=== PATIENT | female | born 1980 | race Caucasian/White ===

== ENCOUNTER 2022-12-06 21:18 | Outpatient (CLI) | payer BC, SELFPAY | END 2022-12-06 21:19 | disposition home or self-care (01) | LOC: AMB 12-07 02:03 | PROVIDERS: Visit Provider Family Medicine | DX: R07.89 Other chest pain (principal); R42 Dizziness and giddiness; R53.1 Weakness | CPT/HCPCS: A0425; A0427 ==

== ENCOUNTER 2022-12-06 21:39 | Observation (INO) | payer BC, SELFPAY ==
[2022-12-06] VITALS (12 sets, daily range): BP systolic 99–130; BP diastolic 55–97; PULSE 98–121; RESP 20; TEMP 36.6; O2SAT 98–100
--- NOTE | 2022-12-06 21:43 | CRLHL7_ITS ---
For Patients: As a result of the Century Cures Act, medical imaging exams and procedure reports are released immediately into your electronic medical record. You may view this report before your referring provider. If you have questions, please contact your health care provider. INDICATION: Acute stroke, left-sided weakness. TECHNIQUE: CTA neck with contrast bolus tracking, 3D angiographic rendering using maximum intensity projection (MIP). FINDINGS: There is no significant carotid artery stenosis or dissection. There is no significant vertebral artery stenosis or dissection. The soft tissues of the neck are within normal limits. The cervical spine is in normal alignment. IMPRESSION: Unremarkable neck CTA. Please note that all CT scans at this facility use dose modulation, iterative reconstruction, and/or weight-based dosing when appropriate to reduce radiation dose to as low as reasonably achievable. Dictated by Lalo Winn MD @ 12/07/2022 8:38:59 AM (Electronically Signed)
--- NOTE | 2022-12-06 21:43 | CRLHL7_ITS ---
For Patients: As a result of the Century Cures Act, medical imaging exams and procedure reports are released immediately into your electronic medical record. You may view this report before your referring provider. If you have questions, please contact your health care provider. INDICATION: Left-sided weakness. TECHNIQUE: Noncontrast CT images acquired through the brain. COMPARISON: None. FINDINGS: The ventricles and sulci are within normal limits for patient age. No mass effect or midline shift. The reis-white differentiation is maintained. No acute intracranial hemorrhage or pathologic extra-axial fluid collection. The globes are symmetric. The calvarium is intact. The visualized paranasal sinuses and mastoid air cells are clear. IMPRESSION: No acute intracranial hemorrhage or mass effect. Please note that all CT scans at this facility use dose modulation, iterative reconstruction, and/or weight-based dosing when appropriate to reduce radiation dose to as low as reasonably achievable. Dictated by Jeison Xiao MD @ 12/06/2022 10:06:18 PM (Electronically Signed)
--- NOTE | 2022-12-06 21:43 | CRLHL7_ITS ---
For Patients: As a result of the Century Cures Act, medical imaging exams and procedure reports are released immediately into your electronic medical record. You may view this report before your referring provider. If you have questions, please contact your health care provider. INDICATION: Acute stroke, left-sided weakness. TECHNIQUE: CTA head with contrast bolus tracking, 3D angiographic rendering using maximum intensity projection (MIP). FINDINGS: There is normal opacification of the intracranial vasculature. There is no large vessel occlusion. No aneurysm is identified. IMPRESSION: Unremarkable head CTA. Please note that all CT scans at this facility use dose modulation, iterative reconstruction, and/or weight-based dosing when appropriate to reduce radiation dose to as low as reasonably achievable. Dictated by Lalo Winn MD @ 12/07/2022 8:37:52 AM (Electronically Signed)
--- NOTE | 2022-12-06 21:53 | ED_ITS ---
HPI - General Adult General Time Seen by Provider: 21:54 Date Seen: 12/06/22 Chief complaint: Weakness Stated complaint: Possible Stroke Time Seen by Provider: 12/06/22 21:43 Source: patient Mode of arrival: EMS Limitations: physical limitation History of Present Illness HPI narrative: Patient is a 42 year white female who at 9:10 a.m. developed some left arm and leg weakness, an ambulance was called. She had been sleeping and taking a nap and then woke up and then had some weakness noted. She has felt some shakiness and some tingling in her left arm it seems better at this point like it is improved in terms of strength, but she still feels a little subjectively weak on the left arm and left leg. She has had no history of stroke no hypertension, no AFib, no recent trauma or injury. She her had a vasectomy. She has not had any bleeding issues. She has had no hypertension hyperlipidemia Related Data Home Medications Medication Instructions Recorded Confirmed No Known Home Medications 12/06/22 12/06/22 Allergies Allergy/AdvReac Type Severity Reaction Status Date / Time No Known Drug Allergies Allergy Verified 12/06/22 22:25 Review of Systems Status of ROS: Reports: 6 or more systems reviewed and unremarkable except as noted in History and below [facility] Medical History (Updated 12/06/22 @ 23:58 by Elmer Del Castillo MD) 3 Social History Smoking Status: Never smoker Do you use any of these nicotine containing products: None How often do you have a drink containing alcohol: 2-3 times a week How many standard drinks containing alcohol do you have on a typical day: 1 or 2 How often do you have six or more drinks on one occasion: Less than monthly AUDIT-C Alcohol total score: 4 Non-prescribed substance use: denies use service: No Exam Narrative: Exam Narrative: Objective: The patient is alert orient x3 no facial asymmetry tongue protrudes midline normal facial creases noted neck is supple chest is clear heart rhythm regular without murmur abdomen benign extremities are no edema neurologic nonfocal patient has no pronator drift 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 Patient will get an EKG put on a monitoring analyst, IV fluid, laboratory studies, stroke Neurology consult be obtained. Const: Vital Signs, click to edit/add: Vital Signs - 24 hr 12/06/22 22:01 12/06/22 22:02 12/06/22 22:14 Temperature 97.8 F Pulse Rate 112 H 115 H Pulse Rate [Right Pulse Oximeter] 121 H Respiratory Rate 20 Blood Pressure 120/67 Blood Pressure [Ri ght Upper Arm] 130/97 H Pulse Oximetry 100 99 98 Oxygen Delivery Me thod Room Air 12/06/22 22:03 12/06/22 22:15 12/06/22 22:17 Temperature Pulse Rate 114 H 105 H 107 H Pulse Rate [Right Pulse Oximeter] Respiratory Rate Blood Pressure 111/65 Blood Pressure [Ri ght Upper Arm] Pulse Oximetry 99 100 99 Oxygen Delivery Me thod 12/06/22 22:30 12/06/22 22:32 12/06/22 22:33 Temperature Pulse Rate 104 H 102 H 104 H Pulse Rate [Right Pulse Oximeter] Respiratory Rate Blood Pressure 99/55 L Blood Pressure [Ri ght Upper Arm] Pulse Oximetry 98 98 98 Oxygen Delivery Me thod 12/06/22 22:45 12/06/22 22:46 12/06/22 22:47 Temperature Pulse Rate 104 H 98 103 H Pulse Rate [Right Pulse Oximeter] Respiratory Rate Blood Pressure 112/69 Blood Pressure [Ri ght Upper Arm] Pulse Oximetry 98 99 98 Oxygen Delivery Me thod Course Vital Signs Vital signs: Initial Vital Signs Pulse Rate 112 H 12/06/22 22:01 Pulse Oximetry 100 12/06/22 22:01 Vital Signs Pulse Rate 112 H 12/06/22 22:01 Pulse Oximetry 100 12/06/22 22:01 Temperature 97.8 F 12/06/22 22:14 Pulse Rate 103 H 12/06/22 22:47 Respiratory Rate 20 12/06/22 22:14 Blood Pressure 112/69 12/06/22 22:46 Pulse Oximetry 98 12/06/22 22:47 Oxygen Delivery Method Room Air 12/06/22 22:14 Medical Decision Making MDM Narrative Medical decision making narrative: Discussed with Stroke Neurology, they recommended given that she has got normal strength now in her leg apparently, that the deficit is too small that he use any lytics. Would given her normal CT and CTA of the head neck, stroke neurology recommended admission for Plavix, IV access, telemetry, probably echocardiogram and MRI scan. Notify hospitalist will follow in hospital. Blood sugar was normal Lab Data Labs: Lab Results 12/06/22 12/06/22 12/06/22 Range/Units 21:55 21:58 22:02 WBC 6.80 (4.50-11.00) K/uL RBC 3.97 L (4.00-5.20) m/uL Hgb 11.5 L (12.0-16.0) gm/dL Hct 35.5 (33.0-51.0) % MCV 89 (80-100) fL MCH 29 (26-34) pg MCHC 32 (32-36) gm/dL RDW Coeff of Cecy 12.9 (11.5-15.5) % Plt Count 233 (140-440) K/uL Neut % (Auto) 44.3 (42.0-72.0) % Lymph % (Auto) 42.6 (20-44) % Sequoyah % (Auto) 7.5 (0.0-11.0) % Eos % (Auto) 5.0 (0.0-7.0) % Baso % (Auto) 0.6 (0.0-3.0) % Neut # (Auto) 3.01 (1.7-7.0) K/uL Lymph # (Auto) 2.90 (0.90-2.90) K/uL Sequoyah # (Auto) 0.50 (0.00-0.90) K/UL Eos # (Auto) 0.34 (0.00-0.50) K/uL Baso # (Auto) 0.04 (0.00-0.30) K/uL INR 1.04 (0.91-1.10) APTT 27 (23-33) Seconds Sodium 133 L (135-149) mmol/L Potassium 4.0 (3.6-5.1) mmol/L Chloride 102 (96-114) mmol/L Carbon Dioxide 26 (20-32) mmol/L BUN 14 (5-24) mg/dL Creatinine 0.7 (0.5-1.5) mg/dL Estimated GFR 110 ml/min Glucose 109 (60-115) mg/dL Calcium 9.1 (8.4-10.6) mg/dL Total Bilirubin 0.2 (0.1-1.5) mg/dL Direct Bilirubin 0.1 (0.0-0.5) mg/dL AST 22 (12-35) U/L ALT 15 (4-35) U/L Alkaline Phosphatase 46 (40-150) U/L C-Reactive Protein < 0.5 L (0.5-1.0) mg/dL NT-Pro-B Natriuret Pep 70 pg/mL Total Protein 6.8 (6.0-8.3) g/dL Albumin 4.1 (3.3-5.0) g/dL HCG, Qual Negative (Negative) SARS-CoV-2 (PCR) Negative SARS-CoV-2 (Negative) POC Troponin I 0.00 L (0.01-0.04) ng/ml Discharge Plan Discharge Clinical Impression: Left-sided weakness Patient Disposition: Admitted As Inpatient
[2022-12-06] MEDS: 0.9 % SODIUM CHLORIDE 500 ML 500 ML IV (21:59)
[2022-12-06 22:01] LABS: Basophils Absolute Auto 0.04 K/uL (0.00-0.30); Basophils Percent Auto 0.6 % (0.0-3.0); Eosinophils Absolute Auto 0.34 K/uL (0.00-0.50); Hematocrit 35.5 % (33.0-51.0); Hemoglobin* 11.5 gm/dL (12.0-16.0); Lymphocytes Percent Auto 42.6 % (20-44); Mean Corpuscular HGB Conc 32 gm/dL (32-36); Mean Corpuscular Hemoglobin 29 pg (26-34); Mean Corpuscular Volume 89 fL (80-100); Monocytes Percent Auto 7.5 % (0.0-11.0); Neutrophils Absolute Auto 3.01 K/uL (1.7-7.0); Neutrophils Percent Auto 44.3 % (42.0-72.0); Platelet Count* 233 K/uL (140-440); RDW Coefficient of Variation % 12.9 % (11.5-15.5); Red Blood Count 3.97 m/uL (4.00-5.20)
[2022-12-06 22:12] LABS: Slide Review Reflex No
[2022-12-06 22:14] LABS: Albumin* 4.1 g/dL (3.3-5.0); Chloride* 102 mmol/L (96-114)
[2022-12-06 22:15] LABS: Sodium* 133 mmol/L (135-149)
[2022-12-06 22:17] LABS: Creatinine* 0.7 mg/dL (0.5-1.5); Estimated Glomerular Filt Rate 110 ml/min; INR 1.04 (0.91-1.10); Prothrombin Time 14.2 Seconds
[2022-12-06 22:18] LABS: Alanine Aminotransferase* 15 U/L (4-35); Alkaline Phosphatase* 46 U/L (40-150); Aspartate Amino Transferase* 22 U/L (12-35); Bilirubin Direct* 0.1 mg/dL (0.0-0.5); Bilirubin Total* 0.2 mg/dL (0.1-1.5); Blood Urea Nitrogen* 14 mg/dL (5-24); Calcium* 9.1 mg/dL (8.4-10.6); Carbon Dioxide* 26 mmol/L (20-32); Glucose* 109 mg/dL (60-115); Partial Thromboplastin Time* 27 Seconds (23-33); Total Protein* 6.8 g/dL (6.0-8.3)
[2022-12-06 22:24] LABS: C Reactive Protein* < 0.5 mg/dL (0.5-1.0)
[2022-12-06 22:29] LABS: NT Pro B Type NatriureticPept* 70 pg/mL
[2022-12-06 22:37] LABS: HCG Qualitative Serum* Negative (Negative)
[2022-12-06 22:43] LABS: SARS PCR* Negative SARS-CoV-2 (Negative)
[2022-12-06] MEDS: CLOPIDOGREL 75 MG TABLET PO (22:46)
--- NOTE | 2022-12-06 23:14 | ED.NURSE ---
patient report given to Marily DWYER. Patient going to be going to [facility] 1
--- NOTE | 2022-12-06 23:43 | P.IMHP_ITS ---
Hospitalist- H&P: HPI History of Present Illness Time Seen by Provider: 23:00 Date Seen: 12/06/22 Chief complaint: Transient left-sided numbness and weakness Narrative: Katie Cifuentes is a 42 year old right-handed woman presents via EMS for further assessment of new onset transient left-sided numbness and weakness. Patient has never had any symptoms like this in the past. She was in her usual state of health up until around 9:15 p.m. today. Earlier in the day she had had a normal Wednesday, were shopping without any difficulties. Around 9:15 p.m. she suddenly noticed numbness in her left arm, hand, and leg. She indicates that she was comfortable in her home and had no trauma, injury, illness. In a relatively short period of time she developed concurrent weakness of left upper extremity and left lower extremity, are more so than leg. Her called for 911 support. Paramedics and share for in their home in a matter of a few minutes. Reportedly they were able to ascertain some weakness on the left side and brought the patient to the hospital emergency department promptly for further assessment. By the time she arrived here most of the weakness had seemingly resolved per our emergency department physician's assessment. Patient had no other symptoms in association with this. Specifically denies headache, nausea, vomiting, any other focal motor or sensory neurologic deficits. Denies chest heaviness, pressure, tightness, or pain. Denies syncope or near-syncope. Denies palpitations, chest fluttering, or concerns with her heart. Denies fevers, rigors, or diaphoresis. No new rashes. No new medications. Had been shopping earlier today and felt well. Denies any sense of anxiety or depression recently. Denies emotional, psychological, social stressors. Review of Systems Status of ROS: Reports: 10 or more systems reviewed and unremarkable except as noted in History and below Narrative: Denies blood loss of any sort. Denies myalgias or arthralgias. Denies polyuria, polydipsia, polyphagia. Denies night sweats. Denies weight gain or weight loss. Bowel and bladder function are satisfactory. Physically active, exercising 4-5 days per week. Very occasionally only consumes alcoholic beverages. Denies use of any street or recreational drugs. Does not use any tobacco products. . Lives with and has 2 children, I believe 1 is 18 and the other 1 is 11. 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 [facility] Medical History 3 Family History Uncle Migraine Social History Smoking Status: Never smoker Do you use any of these nicotine containing products: None How often do you have a drink containing alcohol: 2-3 times a week How many standard drinks containing alcohol do you have on a typical day: 1 or 2 How often do you have six or more drinks on one occasion: Less than monthly AUDIT-C Alcohol total score: 4 Non-prescribed substance use: denies use service: No Meds Home Medications and Allergies Home Medications Medication Instructions Recorded Confirmed Type No Known Home Medications 12/06/22 12/06/22 History Allergies Allergy/AdvReac Type Severity Reaction Status Date / Time No Known Drug Allergies Allergy Verified 12/06/22 22:25 Exam Narrative: Exam Narrative: Appears comfortable no acute distress. Alert and oriented to self, place, time and situation. Somewhat anxious, mood and affect are congruent. Minimal facial asymmetry with coronary of right mouth being slightly lower than on the left. Patient, , an 11-year-old son indicate she appears entirely normal. Vision and hearing are grossly normal. Pupils equally round reactive to light and accommodation. Extraocular muscles are intact. No icterus or conjunctival injection. Normal external auditory canals and tympanic membranes. Midline nasal septum. Normal nasal mucosa. Dentition in good repair. Tongue is midline. Normal articulation of words. No difficulty with swallowing. Cranial nerves 3-12 are grossly normal. Neck is supple. Midline trachea. Normal thyroid. No JVD, hepatojugular reflux, or carotid bruits. No adenopathy in the pre or postauricular chains, anterior-posterior cervical chains, supra or infraclavicular fossa, submandibular sub mental fossa, or axilla bilaterally. Lungs entirely clear to auscultation without wheezing, rhonchi, or rales. No CVA tenderness. Heart tones with regular rhythm, normal S1-S2, without murmur, gallop, or rub. PMI is not laterally displaced. Abdomen with active bowel sounds, soft, nontender. No organomegaly or masses. Independent transfer, station, and gait. Upper and lower extremity strength testing is symmetric and equal bilaterally. No weakness. Normal rapid alternating movements of upper and lower extremities. No tremor, asterixis, or ataxia. Range of motion of upper and lower extremities is full. No obvious joint abnormalities. Skin is warm, dry, intact. Const: Vital Signs, click to edit/add: Vital Signs - 24 hr 12/06/22 22:01 12/06/22 22:02 12/06/22 22:14 Temperature 97.8 F Pulse Rate 112 H 115 H Pulse Rate [Right Pulse Oximeter] 121 H Respiratory Rate 20 Blood Pressure 120/67 Blood Pressure [Ri ght Upper Arm] 130/97 H Pulse Oximetry 100 99 98 Oxygen Delivery Me thod Room Air 12/06/22 22:03 12/06/22 22:15 12/06/22 22:17 Temperature Pulse Rate 114 H 105 H 107 H Pulse Rate [Right Pulse Oximeter] Respiratory Rate Blood Pressure 111/65 Blood Pressure [Ri ght Upper Arm] Pulse Oximetry 99 100 99 Oxygen Delivery Me thod 12/06/22 22:30 12/06/22 22:32 12/06/22 22:33 Temperature Pulse Rate 104 H 102 H 104 H Pulse Rate [Right Pulse Oximeter] Respiratory Rate Blood Pressure 99/55 L Blood Pressure [Ri ght Upper Arm] Pulse Oximetry 98 98 98 Oxygen Delivery Me thod 12/06/22 22:45 12/06/22 22:46 12/06/22 22:47 Temperature Pulse Rate 104 H 98 103 H Pulse Rate [Right Pulse Oximeter] Respiratory Rate Blood Pressure 112/69 Blood Pressure [Ri ght Upper Arm] Pulse Oximetry 98 99 98 Oxygen Delivery Me thod Documenting provider has reviewed patient's vital signs: yes Hospitalist - H&P: Result Labs Labs: Short CBC 12/06/22 Range/Units 21:55 WBC 6.80 (4.50-11.00) K/uL Hgb 11.5 L (12.0-16.0) gm/dL Hct 35.5 (33.0-51.0) % Plt Count 233 (140-440) K/uL [facility] 12/06/22 21:55 Sodium 133 L Potassium 4.0 Chloride 102 Carbon Dioxide 26 BUN 14 Creatinine 0.7 Glucose 109 Calcium 9.1 Liver Function 12/06/22 Range/Units 21:55 Total Bilirubin 0.2 (0.1-1.5) mg/dL Direct Bilirubin 0.1 (0.0-0.5) mg/dL AST 22 (12-35) U/L ALT 15 (4-35) U/L Alkaline Phosphatase 46 (40-150) U/L Albumin 4.1 (3.3-5.0) g/dL ECG Attestation: I personally reviewed and interpreted this ECG as follows: ECG interpretation date: 12/06/22 ECG interpretation time: 23:30 Prior ECG tracings: not available for review Interpretation: Sinus tachycardia without ischemic changes. Heart rate 112. Imaging CT scan - head: Attestation: I have reviewed the pertinent imaging results. Radiologist's impression: CT of the head without contrast demonstrates no abnormalities. CT scan of head and neck angiogram demonstrates no large vessel abnormalities. Assessment and Plan Assessment and plan (1) Left-sided weakness: Problem comment: Left-sided numbness and weakness, upper extremity more so than lower extremity. Transient. Differential diagnosis includes TIA, stroke, migraine equivalent, seizure, neoplasm, vascular such as aneurysm or vasculitis, inflammatory such as multiple sclerosis, infectious such as syphilis, and psychogenic. Status: Acute Assessment and Plan: 1. Emergency department physician discussed with neurologist at [facility]. Neurologist recommended admission to observation, telemetry, echo, MRI. 2. Patient and are agreeable to the same. 3. Will check VDRL, erythrocyte sedimentation rate also. 4. Neuro checks while in the hospital. 5. Physical therapy and occupational therapy consultations. 6. Will likely warrant outpatient neurology consultation if continues to do well, consider transfer sooner if condition worsens.
[2022-12-07] VITALS (8 sets, daily range): BP systolic 93–107; BP diastolic 60–68; PULSE 64–98; RESP 16; TEMP 37.1–37.3; O2SAT 98–100; BMI 21.4
--- NOTE | 2022-12-07 07:39 | PC.NURSE ---
Pt is pleasant and cooperative. VSS she is on RA. Numbness and tingling gone around 0300. Up I in room. No other symptoms noted. Voiding without problems . Tolerating liquid.
[2022-12-07] MEDS: CLOPIDOGREL 75 MG TABLET PO (09:05)
[2022-12-07] MEDS: SODIUM CHLORIDE 0.9 % (FLUSH) 10 ML SYRINGE 5 ML IVF (09:06)
--- NOTE | 2022-12-07 11:00 | CRLHL7_ITS ---
For Patients: As a result of the Century Cures Act, medical imaging exams and procedure reports are released immediately into your electronic medical record. You may view this report before your referring provider. If you have questions, please contact your health care provider. INDICATION: Left-sided weakness. TECHNIQUE: Multiplanar multisequence noncontrast MR images acquired through the brain. COMPARISON: CT brain and CTA head/neck 12/06/2022. FINDINGS: The ventricles and sulci are within normal limits for patient age. No mass effect or midline shift. Two punctate FLAIR hyperintensities in the frontal white matter (series 4, image 25), nonspecific. No diffusion restriction to suggest acute infarction. No intracranial hemorrhage or pathologic extra-axial fluid collection. The major arterial flow voids of the skullbase are preserved. The globes are symmetric. The paranasal sinuses are well aerated. The mastoid air cells are clear. IMPRESSION: 1. No acute infarction, mass effect, or intracranial hemorrhage. 2. Two punctate T2 FLAIR hyperintensities in the supratentorial white matter are nonspecific, though typical for sequelae of minimal chronic microvascular ischemic changes or migraine headaches. Dictated by Jeison Xiao MD @ 12/07/2022 12:35:15 PM (Electronically Signed)
--- NOTE | 2022-12-07 13:21 | CRLHL7_ITS ---
For Patients: As a result of the Century Cures Act, medical imaging exams and procedure reports are released immediately into your electronic medical record. You may view this report before your referring provider. If you have questions, please contact your health care provider. INDICATION: Left-sided weakness TECHNIQUE: A compression venous ultrasound exam was performed of both lower extremities using reis scale imaging, color Doppler and spectral Doppler analysis. FINDINGS: Sonographic imaging of the lower extremities demonstrates normal compressibility and color Doppler venous blood flow within the common femoral, deep femoral, and proximal greater saphenous veins. Within the thighs the femoral veins are patent and compressible. At a lower level the popliteal and posterior tibial veins also show normal compressibility and color Doppler venous blood flow. IMPRESSION: No evidence of deep vein thrombosis within either the left or right lower extremity. Dictated by Caroline Holguin MD @ 12/07/2022 2:40:09 PM (Electronically Signed)
--- NOTE | 2022-12-07 16:52 | P.IMHP_ITS ---
Hospitalist- H&P: HPI History of Present Illness Date Seen: 12/07/22 Chief complaint: Transient left-sided numbness and weakness Narrative: HOSPITALIST DISCHARGE SUMMARY ATTENDING PHYSICIAN: Jeanne Lyon MD FINAL DIAGNOSIS: HOSPITAL FOLLOWUP ISSUES: REFERRALS WHILE ADMITTED: None REFERRALS AFTER DISCHARGE: None BRIEF HOSPITAL COURSE: SUBSTANTIVE NOTATIONS ON IMAGING, LAB, MICROBIOLOGY/PATHOLOGY STUDIES: Final Impressions: 1. Normal LV size, normal wall thickness, normal global systolic function with an estimated EF of 60 - 65%. 2. Right ventricular cavity size is normal, global systolic RV function is normal. 3. Positive bubble study following Valsalva. Agitated saline injection showed right to left shunting of microbubbles across the atrial septum only following Valsalva. No left to right shunting was detected by limited color flow Doppler interrogation of the interatrial septum. DISCHARGE MEDICATIONS: See Reconciled list - SIGNIFICANT CHANGES: REVIEW OF SYSTEMS No new chest pain or dyspnea Pain controlled No voiding difficulties Tolerating diet challenge PHYSICAL EXAM: CONSTITUTIONAL: VITAL SIGNS: see record. HEENT: Normocephalic, atraumatic. PERRL, EOMI, conjunctivae pink, no scleral icterus. Ears and nose externally normal. Pharynx normal. NECK: No JVD. No carotid bruit, no thyromegaly, no adenopathy. CHEST: Clear to auscultation bilaterally. HEART: S1 and S2 normal. Edema ABDOMEN: Soft, nontender. Normal bowel sounds. MUSCULOSKELETAL: No gross joint deformity or swelling. NEURO: Cranial nerves intact. Grossly intact. No asymmetric findings. SKIN: No rashes, petechiae, concerning changes PSYCHIATRIC: Mood euthymic. DISPOSITION: Time spent on discharge 37 minutes. [facility] Medical History 3 Family History Uncle Migraine Social History Smoking Status: Never smoker Do you use any of these nicotine containing products: None How often do you have a drink containing alcohol: 2-3 times a week How many standard drinks containing alcohol do you have on a typical day: 1 or 2 How often do you have six or more drinks on one occasion: Less than monthly AUDIT-C Alcohol total score: 4 Non-prescribed substance use: denies use Caffeine: Yes (1 cup of coffee) service: No Meds Home Medications and Allergies Allergies Allergy/AdvReac Type Severity Reaction Status Date / Time No Known Drug Allergies Allergy Verified 12/06/22 22:25 Exam Const: Vital Signs, click to edit/add: Vital Signs - 24 hr 12/06/22 22:01 12/06/22 22:02 12/06/22 22:14 Temperature 97.8 F Pulse Rate 112 H 115 H Pulse Rate [Pulse Oximeter] Pulse Rate [Right Pulse Oximeter] 121 H Respiratory Rate 20 Blood Pressure 120/67 Blood Pressure [Le ft Arm] Blood Pressure [Ri ght Upper Arm] 130/97 H Pulse Oximetry 100 99 98 Oxygen Delivery Me thod Room Air 12/06/22 22:03 12/06/22 22:15 12/06/22 22:17 Temperature Pulse Rate 114 H 105 H 107 H Pulse Rate [Pulse Oximeter] Pulse Rate [Right Pulse Oximeter] Respiratory Rate Blood Pressure 111/65 Blood Pressure [Le ft Arm] Blood Pressure [Ri ght Upper Arm] Pulse Oximetry 99 100 99 Oxygen Delivery Me thod 12/06/22 22:30 12/06/22 22:32 12/06/22 22:33 Temperature Pulse Rate 104 H 102 H 104 H Pulse Rate [Pulse Oximeter] Pulse Rate [Right Pulse Oximeter] Respiratory Rate Blood Pressure 99/55 L Blood Pressure [Le ft Arm] Blood Pressure [Ri ght Upper Arm] Pulse Oximetry 98 98 98 Oxygen Delivery Me thod 12/06/22 22:45 12/06/22 22:46 12/06/22 22:47 Temperature Pulse Rate 104 H 98 103 H Pulse Rate [Pulse Oximeter] Pulse Rate [Right Pulse Oximeter] Respiratory Rate Blood Pressure 112/69 Blood Pressure [Le ft Arm] Blood Pressure [Ri ght Upper Arm] Pulse Oximetry 98 99 98 Oxygen Delivery Me thod 12/07/22 00:28 12/07/22 01:00 12/07/22 01:01 Temperature Pulse Rate 80 80 Pulse Rate [Pulse Oximeter] 77 Pulse Rate [Right Pulse Oximeter] Respiratory Rate 16 Blood Pressure Blood Pressure [Le ft Arm] 107/68 Blood Pressure [Ri ght Upper Arm] Pulse Oximetry 98 Oxygen Delivery Me thod Room Air 12/07/22 04:32 12/07/22 07:00 12/07/22 11:00 Temperature 99.2 F Pulse Rate Pulse Rate [Pulse Oximeter] 64 76 98 Pulse Rate [Right Pulse Oximeter] Respiratory Rate 16 16 16 Blood Pressure Blood Pressure [Le ft Arm] 93/60 97/66 103/68 Blood Pressure [Ri ght Upper Arm] Pulse Oximetry 98 99 99 Oxygen Delivery Il thod Room Air Room Air Room Air 12/07/22 08:00 12/07/22 15:00 Temperature 98.7 F Pulse Rate 69 Pulse Rate [Pulse Oximeter] 73 Pulse Rate [Right Pulse Oximeter] Respiratory Rate 16 Blood Pressure Blood Pressure [Le ft Arm] 107/68 Blood Pressure [Ri ght Upper Arm] Pulse Oximetry 100 Oxygen Delivery Il thod Room Air Hospitalist - H&P: Result Labs Labs: Short CBC 12/06/22 Range/Units 21:55 WBC 6.80 (4.50-11.00) K/uL Hgb 11.5 L (12.0-16.0) gm/dL Hct 35.5 (33.0-51.0) % Plt Count 233 (140-440) K/uL BMP 12/06/22 21:55 Sodium 133 L Potassium 4.0 Chloride 102 Carbon Dioxide 26 BUN 14 Creatinine 0.7 Glucose 109 Calcium 9.1 Liver Function 12/06/22 Range/Units 21:55 Total Bilirubin 0.2 (0.1-1.5) mg/dL Direct Bilirubin 0.1 (0.0-0.5) mg/dL AST 22 (12-35) U/L ALT 15 (4-35) U/L Alkaline Phosphatase 46 (40-150) U/L Albumin 4.1 (3.3-5.0) g/dL
--- NOTE | 2022-12-07 18:14 | PC.NURSE ---
D/c: Pt A&O. Ind and tolerating activity. Denies chest pain and SOB. Complains of tingling in left arm in the morning but since resolved. IV removed with tip intact. D/c instructions given to pt verbally and written copy sent home. All questions answered. D/c at 1720 home with .
--- NOTE | 2022-12-08 16:18 | PM.DS1 ---
DS: Providers Provider Date Seen: 12/07/22 Date of admission: 12/06/22 23:58 Primary care physician: Not a Local Provider Admitting Clinician: Elmer Del Castillo MD Consults: 12/06/22 23:58 Consult to Occupational Therapy [CONS] Routine Comment: Reason(s) for OT Consult:: Evaluate and Treat Any Restrictions?:: No Restrictions Comment: transient L sided numbness and weakness Consult to Physical Therapy [CONS] Routine Comment: Reason(s) for PT Consult:: Evaluate and Treat Any Restrictions?:: No Restrictions Comment: transient L sided numbness and weakness Attending Physician on discharge: [facility]charge: 12/07/22 DS: Diagnosis Discharge Diagnosis (1) Cryptogenic stroke: Status: Acute Problem details: Negative Imaging findings. Affected her left side. Likely from PFO. Negative DVT ultrasound. Released on p.o. Plavix. (2) PFO (patent foramen ovale): Status: Acute Problem details: [facility] to follow. DS: Summary Hospital Course Hospital Course: HOSPITALIST DISCHARGE SUMMARY ATTENDING PHYSICIAN: JEANNE GUTIERREZ MD FINAL DIAGNOSIS: Cryptogenic ischemic CVA Patent foramen ovale HOSPITAL FOLLOWUP ISSUES: Cardiology REFERRALS WHILE ADMITTED: Phone consultation with Cardiology REFERRALS AFTER DISCHARGE: Cardiology BRIEF HOSPITAL COURSE: Chelly is a 42-year-old who presented with nonspecific but concerning symptoms of a CVA. Previously healthy she felt the onset of left-sided weakness her arm and leg and felt syncopal. She was brought by EMS to our hospital. Her initial CT angiogram was reassuring but given her symptoms we discussed her case with Neurology who recommended observation and initiation of Plavix. The following day all of her symptoms had resolved. Neuro exam was normal. Her brain MRI showed some punctate lesions more consistent with migraine history verses CVA. However, her echocardiogram was positive for a shunt and positive bubble study indicating a PFO. Spoke with cardiology at [facility], we will keep her on the Plavix, she will discharge with strict precautions to return with any new neurologic symptoms and she will see them in outpatient follow-up for consultation regarding PFO. SUBSTANTIVE NOTATIONS ON IMAGING, LAB, MICROBIOLOGY/PATHOLOGY STUDIES: Final Impressions: 1. Normal LV size, normal wall thickness, normal global systolic function with an estimated EF of 60 - 65%. 2. Right ventricular cavity size is normal, global systolic RV function is normal. 3. Positive bubble study following Valsalva. DISCHARGE MEDICATIONS: SEE RECONCILED LIST - SIGNIFICANT CHANGES: Plavix 75 mg p.o. q.day REVIEW OF SYSTEMS NO NEW CHEST PAIN OR DYSPNEA PAIN CONTROLLED NO VOIDING DIFFICULTIES TOLERATING DIET CHALLENGE PHYSICAL EXAM: CONSTITUTIONAL: VITAL SIGNS: SEE RECORD. HEENT: NORMOCEPHALIC, ATRAUMATIC. PERRL, EOMI, CONJUNCTIVAE PINK, NO SCLERAL ICTERUS. EARS AND NOSE EXTERNALLY NORMAL. PHARYNX NORMAL. NECK: NO JVD. NO CAROTID BRUIT, NO THYROMEGALY, NO ADENOPATHY. CHEST: CLEAR TO AUSCULTATION BILATERALLY. HEART: S1 AND S2 NORMAL. EDEMA ABDOMEN: SOFT, NONTENDER. NORMAL BOWEL SOUNDS. MUSCULOSKELETAL: NO GROSS JOINT DEFORMITY OR SWELLING. NEURO: CRANIAL NERVES INTACT. GROSSLY INTACT. NO ASYMMETRIC FINDINGS. SKIN: NO RASHES, PETECHIAE, CONCERNING CHANGES PSYCHIATRIC: MOOD EUTHYMIC. DISPOSITION: Home with family TIME SPENT ON DISCHARGE 37 MINUTES. Status at Discharge Functional status at discharge: independent ambulation Overall status at discharge: patient is not back to baseline Time Spent with Patient Time attestation: Total time spent providing and/or coordinating discharge services: Time spent: Greater than 30 minutes Discharge Plan Discharge Disposition: Home w/ Parent or Adult Date of Admission: 12/06/22 23:58 Attending Provider on Discharge: Jeanne Gutierrez Primary Care Provider: Provider,Not a Local Anticipated Discharge Date/Time: 12/07/22 16:14 Discharge Medications: New clopidogrel 75 mg Tablet 75 mg PO DAILY Qty: 30 0RF Discharge Orders: Discharge Order (Routine); Ordered 12/07/22 Ordered By: Jeanne Gutierrez Patient Education: Clopidogrel (By mouth) (Plavix), Patent Foramen Ovale (DC) Additional Instructions: Take plavix everyday. Any new symptoms please present to the ED immediately. Activity Level: No Restrictions Discharge Diet: Regular Follow Up Appointments: [facility] [Provider Group] (The group should call you. Please call our floor at [phone] if you need assistance. ) Forms: [employer] Info Instructions
--- NOTE | 2022-12-11 15:22 | PC.NURSE ---
Received call from patient today, stated still having tingling in left arm which was present during discharge as well. Reviewed Dr lopez note, Informed patient to see ED if symptoms persist.
== END 2022-12-07 15:20 | disposition home or self-care (01) ==
LOC: ED 22:29 → MEDSURG 23:44
PROVIDERS: Admitting Provider Internal Medicine; Emergency Provider Family Medicine; Visit Provider Internal Medicine
DX: I63.9 Cerebral infarction, unspecified (principal); G81.94 Hemiplegia, unspecified affecting left nondominant side; Q21.12 Patent foramen ovale
CPT/HCPCS: 36415; 70450; 70496; 70498; 70551; 80048; 80076; 83880; 84484; 84703; 85025; 85610; 85730; 86140; 87635; 93005; 93306; 93970; 96360; 96374; 97112; 97161; 97165; 99285; G0378; A9270; J7120; Q9967

== ENCOUNTER 2023-06-14 12:56 | Emergency (ER) | payer BC, SELFPAY ==
[2023-06-14 13:14] VITALS: BP 115/81; PULSE 104; RESP 16; TEMP 37.3; O2SAT 100; BMI 20.5
--- NOTE | 2023-06-14 13:46 | ED_ITS ---
HPI - Chest Pain General Chief Complaint: Chest Pain Stated Complaint: Tightness in chest Time Seen by Provider: 06/14/23 13:21 History of Present Illness HPI narrative: This 42-year-old female comes in reporting some chest discomfort that began last night. She states that it is mild to moderate and is rather constant. She does not have any nausea, vomiting, shortness of breath, diaphoresis, or exercise intolerance. She had a repair of a patent foramen ovale done 3 days ago. This was repaired by a catheter into her femoral vessels. She did not have open heart surgery. She is taking Plavix and now started aspirin. This PFO was identified because she did have a small stroke. She does report some positional lightheadedness symptoms. When upright sometime she feels lightheaded. She is not on any antihypertensive or rate controlling medications. Related Data Home Medications Medication Instructions Recorded Confirmed aspirin 81 mg capsule 81 mg PO DAILY 06/14/23 06/14/23 Previous Rx's Medication Instructions Recorded clopidogrel 75 mg tablet 75 mg PO DAILY #30 tabs 12/07/22 Allergies Allergy/AdvReac Type Severity Reaction Status Date / Time No Known Drug Allergies Allergy Verified 06/14/23 13:13 Review of Systems Status of ROS Reports: 10 or more systems reviewed and unremarkable except as noted in History and below Narrative Constitutional: No fevers, no weight gain or loss. Eyes: No discharge. No vision changes. HENT: No congestion, no sore throat, no ear pain. Cardiovascular: No palpitations. Chest discomfort as described above. Respiratory: No shortness of breath, no wheezes, no cough. Gastrointestinal: No abdominal pain, no vomiting, no diarrhea. Genitourinary: No dysuria, no hematuria. Musculoskeletal: Normal range of motion. Skin: No rashes, no pruritis. Neurological: No dizziness, weakness, sensory change, speech change. Endo/Heme/Allergies: No bruising or bleeding. No polydipsia. Pysch: no suicidality, no anxiety, no insomnia. All other systems reviewed and are negative. [facility] Medical History (Updated 06/14/23 @ 14:24 by Luis Reyez MD) Cryptogenic stroke ?I63.9 - Cerebral infarction, unspecified (ICD-10) PFO (patent foramen ovale) ?Q21.12 - Patent foramen ovale (ICD-10) 3 Family History Uncle Migraine Social History Smoking Status: Never smoker Do you use any of these nicotine containing products: None Second hand tobacco smoke exposure: No How often do you have a drink containing alcohol: 2-3 times a week How many standard drinks containing alcohol do you have on a typical day: 1 or 2 How often do you have six or more drinks on one occasion: Less than monthly AUDIT-C Alcohol total score: 4 Non-prescribed substance use: denies use Caffeine: Yes (1 cup of coffee) service: No Exam Narrative Exam Narrative: Constitutional: Well-developed, well-nourished, no acute distress. HEENT: Normocephalic, atraumatic. Neck: Normal range of motion. Nontender. Supple. Heart: Regular. No murmurs. Normal rate. Intact distal pulses. Lungs: Clear to auscultation. No chest discomfort. No wheezes, rhonchi, or ral es. Abdomen: Normal bowel sounds. Nontender. No rebound tenderness. Genitalia: Deferred. Back: No midline tenderness. Normal range of motion. Extremities: Normal range of motion. No injury. Skin: Intact. No rash. Warm. No erythema or pallor. Neurologic: No altered sensation. No weakness. Alert and oriented. Psychiatric: No suicidality. No anxiety or depression. No insomnia. Nursing notes and vitals signs are reviewed. Const Vital Signs, click to edit/add: Vital Signs - 24 hr 06/14/23 13:14 06/14/23 14:04 Temperature 99.1 F Pulse Rate [Pulse Oximeter] 104 H 83 Pulse Rate [orthostatic sitting Pulse Oximeter] 94 Pulse Rate [orthostatic standing Superficial Temporal] 100 Respiratory Rate 16 Blood Pressure [Right Upper Arm] 115/81 Blood Pressure [orthostatic lying Left Arm] 98/64 Blood Pressure [orthostatic sitting Left Arm] 102/77 Blood Pressure [orthostatic standing Left Arm] 110/89 Pulse Oximetry 100 Oxygen Delivery Method Room Air Course Vital Signs Vital signs: Initial Vital Signs Temperature 99.1 F 06/14/23 13:14 Temperature Source Temporal Artery Scan 06/14/23 13:14 Pulse Rate 104 H 06/14/23 13:14 Pulse Rhythm Regular 06/14/23 13:14 Pulse Strength 3+ Normal 06/14/23 13:14 Respiratory Rate 16 06/14/23 13:14 Blood Pressure 115/81 06/14/23 13:14 Blood Pressure Mean 92 06/14/23 13:14 Blood Pressure Position Sitting 06/14/23 13:14 Pulse Oximetry 100 06/14/23 13:14 Oxygen Delivery Method Room Air 06/14/23 13:14 Vital Signs Temperature 99.1 F 06/14/23 13:14 Pulse Rate 104 H 06/14/23 13:14 Respiratory Rate 16 06/14/23 13:14 Blood Pressure 115/81 06/14/23 13:14 Pulse Oximetry 100 06/14/23 13:14 Oxygen Delivery Method Room Air 06/14/23 13:14 Temperature 99.1 F 06/14/23 13:14 Pulse Rate 83 06/14/23 14:04 Respiratory Rate 16 06/14/23 13:14 Blood Pressure 98/64 06/14/23 14:04 Pulse Oximetry 100 06/14/23 13:14 Oxygen Delivery Method Room Air 06/14/23 13:14 MDM - Chest Pain MDM Narrative Medical decision making narrative: This patient comes in reporting some mild chest discomfort that started last night. She also has had a few brief oppositional episodes of feeling lightheaded. She did have a repair of a patent foramen ovale 3 days ago. Her EKG here shows normal sinus rhythm without any ST or T-wave abnormalities. Orthostatic blood pressures are obtained and returned with normal results. Her blood pressure actually increased a bit when moving from a lying to sitting and then to standing. She did not have any symptoms of lightheaded Corey when do ing so. I did discuss lab and imaging options with the patient. These were declined in a process of shared decision making as she just had a recent procedure with a very thorough workup. Her discomfort may be related to that recent procedure. At the time of discharge the patient appears safe for outpatient management. The treatment plan is reviewed along with written and verbal return precautions. Reasons to return and the importance of close followup were also reviewed. ECG Data Attestation: I personally reviewed and interpreted this ECG as follows: Interpretation: Normal sinus rhythm. Rate is 97 beats per minute. There are no ST or T-wave abnormalities. Discharge Plan Discharge Clinical Impression: Atypical chest pain Patient Disposition: Home, Self-Care Condition: Stable Additional Instructions: Continue current plans. Follow up with MD as scheduled or sooner if needed. Return if worsening. Prescriptions: No Action clopidogrel 75 mg Tablet 75 mg PO DAILY Qty: 30 0RF aspirin 81 mg capsule 81 mg PO DAILY Follow Up/Referrals: Provider,Not a Local [Referring] - Stand Alone Forms: [employer] Info Instructions
[2023-06-14 14:04] VITALS: BP 102/77; BP 110/89; BP 98/64; PULSE 100; PULSE 83; PULSE 94
== END 2023-06-14 14:30 | disposition home or self-care (01) ==
PROVIDERS: Emergency Provider Emergency Medicine Emergency Medical Services; PCP Family Medicine
DX: R07.89 Other chest pain (principal)
CPT/HCPCS: 93005; 99284

== ENCOUNTER 2023-06-24 10:57 | Outpatient (CLI) | payer BC, SELFPAY | END 2023-06-24 10:58 | disposition home or self-care (01) | PROVIDERS: PCP Family Medicine; Visit Provider Family Medicine | DX: I63.9 Cerebral infarction, unspecified (principal) | CPT/HCPCS: 80048; 85025 ==

== ENCOUNTER 2023-07-12 14:57 | Outpatient (CLI) | payer BC, SELFPAY | END 2023-07-12 14:58 | disposition home or self-care (01) | PROVIDERS: PCP Family Medicine; Visit Provider Nurse Practitioner | DX: Q21.12 Patent foramen ovale (principal) | CPT/HCPCS: 93308; 93321; 93325 ==

== ENCOUNTER 2023-07-23 09:36 | Outpatient (CLI) | payer BC, SELFPAY ==
--- NOTE | 2023-07-23 09:45 | CRLHL7_ITS ---
For Patients: As a result of the Cures Act, medical imaging exams and procedure reports are released immediately into your electronic medical record. You may view this report before your referring provider. If you have questions, please contact your health care provider. DIGITAL DIAGNOSTIC BILATERAL MAMMOGRAM USING TOMOSYNTHESIS AND COMPUTER-AIDED DETECTION LEFT BREAST ULTRASOUND CLINICAL HISTORY: LEFT breast pain. COMPARISON: 11/24/2021, 11/10/2021, 11/06/2021. TECHNIQUE: Digital BILATERAL mammogram in four projections. Tomosynthesis and CAD utilized. Real-time ultrasound imaging of LEFT breast with imaging documentation. BREAST COMPOSITION: The breasts are heterogeneously dense, which may obscure small masses. FINDINGS: 3D CC/MLO BILATERAL mammogram images submitted. Stable cyst RIGHT breast. No architectural distortion. No suspicious masses LEFT breast. No adenopathy or suspicious calcifications. Targeted LEFT breast ultrasound performed 2 o`clock 2 cm from the nipple. Circumscribed anechoic cysts are present measuring 8 x 5 x 10 millimeters and 6 x 6 x 7 millimeters. No solid mass. No abnormal vascularity. IMPRESSION: Benign fibrocystic changes LEFT breast 2 o`clock 2 cm from the nipple. No evidence of malignancy. RECOMMENDATIONS: Annual BILATERAL screening mammography. Results and recommendations discussed with the patient. BI-RADS Category 2: Benign A lay language report of this examination will be provided to the patient. Dictated by Erick Villarreal MD @ 07/23/2023 10:30:12 AM osito/Dictated by: Erick Villarreal MD @ 07/23/2023 10:30:00 AM (Electronically Signed)
--- NOTE | 2023-07-23 10:15 | CRLHL7_ITS ---
For Patients: As a result of the Cures Act, medical imaging exams and procedure reports are released immediately into your electronic medical record. You may view this report before your referring provider. If you have questions, please contact your health care provider. PLEASE SEE DIGITAL DIAGNOSTIC BILATERAL MAMMOGRAM PERFORMED SAME DAY CRL:jesse molina/Dictated by: Erick Villarreal MD @ 07/23/2023 10:30:00 AM (Electronically Signed)
== END 2023-07-23 09:37 | disposition home or self-care (01) ==
LOC: MAMMO 09:36
PROVIDERS: PCP Family Medicine; Visit Provider Obstetrics & Gynecology
DX: N64.4 Mastodynia (principal)
CPT/HCPCS: 76642; 77066; G0279

== ENCOUNTER 2024-10-05 10:34 | Outpatient (CLI) | payer BC, SELFPAY ==
--- NOTE | 2024-10-05 10:45 | CRLHL7_ITS ---
For Patients: As a result of the Cures Act, medical imaging exams and procedure reports are released immediately into your electronic medical record. You may view this report before your referring provider. If you have questions, please contact your health care provider. BILATERAL SCREENING MAMMOGRAM WITH COMPUTER-AIDED DETECTION AND TOMOSYNTHESIS TECHNIQUE: CC and MLO views were obtained. These mammographic images have been obtained using full-field digital technique. These mammographic images were interpreted with the benefit of computer-aided detection. Breast Tomosynthesis was used in this interpretation. COMPARISON FILM: 07/23/23, 11/06/21. FINDINGS: The breasts are extremely dense, which lowers the sensitivity of mammography IMPRESSION: There is no radiographic evidence for malignancy. ASSESSMENT: BI-RADS Category 2: Benign RECOMMENDATION: Routine screening mammogram in 1 year. A lay language report of this examination will be provided to the patient. Erick Villarreal M.D. Diagnostic Radiologist [email or web address] Transcribed: 2:54 p.mFei molina/Dictated by: Erick Villarreal MD @ 10/10/2024 12:24:00 PM (Electronically Signed)
== END 2024-10-05 10:35 | disposition home or self-care (01) ==
LOC: MAMMO 10:34
PROVIDERS: PCP Family Medicine; Visit Provider Obstetrics & Gynecology
DX: Z12.31 Encounter for screening mammogram for malignant neoplasm of breast (principal); R92.343 Mammographic extreme density, bilateral breasts
CPT/HCPCS: 77063; 77067

== ENCOUNTER 2024-11-10 13:42 | Outpatient (CLI) | payer BC, SELFPAY ==
[2024-11-12 15:00] LABS: HPV Source Cervical; HPV, High Risk by TMA Not Detected
== END 2024-11-10 13:43 | disposition home or self-care (01) ==
PROVIDERS: PCP Family Medicine; Visit Provider Obstetrics & Gynecology
DX: Z12.4 Encounter for screening for malignant neoplasm of cervix (principal); Z11.51 Encounter for screening for human papillomavirus (HPV)
CPT/HCPCS: 87624; 87625; 88141; 88142

== ENCOUNTER 2024-12-21 10:23 | Outpatient (CLI) | payer BC, SELFPAY ==
--- NOTE | 2024-12-21 11:43 | P.ANES_ITS ---
Anesthesia Charges Start Date/Time Anesthesia Start Date: 12/21/24 Anesthesia Start Time: 11:00 Stop Date/Time Anesthesia Stop Date: 12/21/24 Anesthesia Stop Time: 11:42 Coding CPT Codes CPT Codes: ANES LWR INTST NDSC NOS - 74977 ([id number]) P3 - PATIENT W/SEVERE SYS DISEASE, QK - INDUSTRIAL MAINTENANCE MANAGER 2-4 CNCRNT ANES PROC, QX - RETORT LOAD EXPEDITER SVC W/ MD MED DIRECTION
--- NOTE | 2024-12-21 11:43 | W.ANESCHARGE ---
Anesthesia Charges Start Date/Time Anesthesia Start Date: 12/21/24 Anesthesia Start Time: 11:00 Stop Date/Time Anesthesia Stop Date: 12/21/24 Anesthesia Stop Time: 11:42 Coding CPT Codes CPT Codes: ANES LWR INTST NDSC NOS - 91491 ([id number]) P3 - PATIENT W/SEVERE SYS DISEASE, QK - HYDRAULIC PRESS TENDER 2-4 CNCRNT ANES PROC, QX - ENDLESS TRACK VEHICLE SUPERVISOR SVC W/ MD MED DIRECTION
--- NOTE | 2024-12-21 12:05 | P.ANES_ITS ---
Anesthesia Charges Start Date/Time Anesthesia Start Date: 12/21/24 Anesthesia Start Time: 11:00 Stop Date/Time Anesthesia Stop Date: 12/21/24 Anesthesia Stop Time: 11:42 Coding CPT Codes CPT Codes: ANES LWR INTST NDSC NOS - 29102 ([id number]) QK - MARINE EQUIPMENT SALES ENGINEER 2-4 CNCRNT ANES PROC, P3 - PATIENT W/SEVERE SYS DISEASE, QX - SHOWPLACE MANAGER SVC W/ MD MED DIRECTION
--- NOTE | 2024-12-21 12:05 | W.ANESCHARGE ---
Anesthesia Charges Start Date/Time Anesthesia Start Date: 12/21/24 Anesthesia Start Time: 11:00 Stop Date/Time Anesthesia Stop Date: 12/21/24 Anesthesia Stop Time: 11:42 Coding CPT Codes CPT Codes: ANES LWR INTST NDSC NOS - 41189 ([id number]) QK - BLENDING TANK TENDER 2-4 CNCRNT ANES PROC, P3 - PATIENT W/SEVERE SYS DISEASE, QX - DIRECTOR LEARNING AND DEVELOPMENT SVC W/ MD MED DIRECTION
== END 2024-12-21 10:24 | disposition home or self-care (01) ==
LOC: OP CLINIC 10:24
PROVIDERS: PCP Family Medicine; Visit Provider Surgery
DX: Z12.11 Encounter for screening for malignant neoplasm of colon (principal); D12.3 Benign neoplasm of transverse colon; Z83.719 Family history of colon polyps, unspecified
CPT/HCPCS: 00811; 45385; 88305; J2704